=== PATIENT | female | born 1990 | race Two or more races ===

== ENCOUNTER 2018-10-12 11:30 | Inpatient (IN) | payer BC ==
[~2018-10-12] VITALS: Ht 149.9 cm; Wt 78.6 kg
[2018-10-15] MEDS ORDERED: D5%-LACTATED RINGERS 1,000 ML IV SCH (05:05)
[2018-10-15] MEDS ORDERED: OXYTOCIN 30U/ 0.9% NaCL 500ML 500 ML IV ONE (05:05)
[2018-10-15] MEDS ORDERED: OXYTOCIN 30U/ 0.9% NaCL 500ML 500 ML IV PRN (05:05)
[2018-10-15] MEDS ORDERED: OXYTOCIN 30U/ 0.9% NaCL 500ML 500 ML ONE ×2 (05:11→19:07)
[2018-10-15] MEDS ORDERED: NEWBORN KIT ONE (05:11)
[2018-10-15 05:20] VITALS: BP 114/60
[2018-10-15] MEDS ORDERED: PREN-3 PO (05:28)
[2018-10-15] MEDS ORDERED: FENTANYL PF 100 MCG/2ML IVPush PRN (05:30)
[2018-10-15] MEDS ORDERED: ONDANSETRON 2MG/ML, 2ML IVPush PRN (05:30)
[2018-10-15] MEDS ORDERED: TERBUTALINE 1 MG/ML, 1ML IVPush PRN ×2 (05:30)
[2018-10-15] MEDS ORDERED: FENTANYL PF 100 MCG/2ML IV PRN (05:30)
[2018-10-15] MEDS ORDERED: CALCIUM CARBONATE 500 MG TAB.CHEW PO PRN (05:30)
[2018-10-15] MEDS ORDERED: SODIUM CITRATE/CITRIC ACID 30 ML UDC PO PRN (05:30)
[2018-10-15] MEDS ORDERED: ALUMINUM/MAG/SIMETHICONE 30 ML UDC PO PRN (05:30)
[2018-10-15] MEDS ORDERED: TERBUTALINE 1 MG/ML, 1ML SQ PRN (05:30)
[2018-10-15] MEDS ORDERED: METOCLOPRAMIDE 5 MG/ML, 2ML IVPush PRN (05:30)
[2018-10-15] MEDS ORDERED: PLEASE ENTER ALLERGIES MC SCH (05:30)
[2018-10-15] MEDS: LACTATED RINGERS 1,000 ML IV SCH ×5 (05:36→21:43)
[2018-10-15 05:50] LABS: BASOPHILS # (AUTO) 0.06 x10^3/uL (0-0.1); BASOPHILS % (AUTO) 1 % (0-1); EOSINOPHILS # (AUTO) 0.04 x10^3/uL (0-0.4); EOSINOPHILS % (AUTO) 0 % (1-7); LYMPHOCYTES # (AUTO) 2.66 x10^3/uL (1-3.4); LYMPHOCYTES % (AUTO) 24 % (22-44); MD NO; MEAN CORPUSCULAR HEMOGLOBIN 29.5 pg (27.0-34.8); MEAN CORPUSCULAR HGB CONC 34.1 g/dL (32.4-35.8); MEAN CORPUSCULAR VOLUME 86.3 fL (80-100); MEAN PLATELET VOLUME 10.3 fL (7.4-10.4); MONOCYTES # (AUTO) 0.61 x10^3/uL (0.2-0.8); MONOCYTES % (AUTO) 6 % (2-9); NEUTROPHILS # (AUTO) 7.78 x10^3/uL (1.8-6.8); NEUTROPHILS % (AUTO) 70 % (42-75); PLATELET COUNT 197 x10^3/uL (130-400); RED BLOOD COUNT 4.11 x10^6/uL (3.82-5.3); RED CELL DISTRIBUTION WIDTH 18.8 % (9.6-15.2)
[2018-10-15] MEDS ORDERED: FENTANYL/BUPIV./NS/PF 250 ML EPIDCONT SCH ×2 (06:36→13:43)
[2018-10-15] MEDS ORDERED: TERBUTALINE 1 MG/ML, 1ML ONE (08:41)
[2018-10-15] MEDS ORDERED: BUPIVACAINE 0.25% ONE ×2 (10:05→13:46)
[2018-10-15] MEDS ORDERED: FENTANYL PF 100 MCG/2ML ONE (12:04)
[2018-10-15] MEDS ORDERED: NALOXONE 0.4 MG/ML, 1ML IVPush PRN (14:00)
[2018-10-15] MEDS ORDERED: EPHEDRINE 50 MG/ML, 1ML IVPush PRN (14:00)
[2018-10-15] MEDS ORDERED: LACTATED RINGERS 1,000 ML IVBOLUS PRN (14:00)
[2018-10-15] MEDS ORDERED: ONDANSETRON 2MG/ML, 2ML ONE (17:00)
[2018-10-15] MEDS ORDERED: ONDANSETRON 2MG/ML, 2ML IV PRN (18:00)
[2018-10-15] MEDS ORDERED: OXYcodone IR 5MG TABLET PO PRN (18:00)
[2018-10-15] MEDS ORDERED: MISOPROSTOL 200 MCG TABLET PR PRN (18:00)
[2018-10-15] MEDS ORDERED: ACETAMINOPHEN 325 MG TABLET PO PRN (18:00)
[2018-10-15] MEDS ORDERED: OXYcodone/APAP 5/325MG TABLET ONE (19:07)
[2018-10-15] MEDS ORDERED: IBUPROFEN 600 MG TABLET ONE (19:07)
[2018-10-15] MEDS: IBUPROFEN 600 MG TABLET PO PRN (19:10)
[2018-10-15] MEDS: OXYcodone/APAP 5/325MG TABLET PO PRN (19:10)
[2018-10-15] MEDS: OXYTOCIN 30U/ 0.9% NaCL 500ML 500 ML IV SCH (19:11)
[2018-10-15 20:05] VITALS: BP 108/62
[2018-10-15] MEDS ORDERED: DIPHENHYDRAMINE 12.5MG/5ML, 10ML UDC PO PRN (22:00)
[2018-10-15] MEDS: DIPHENHYDRAMINE 25 MG CAPSULE PO PRN (22:06)
[2018-10-15] MEDS ORDERED: DIPH,PERTUSS(ACELL),TET VAC/PF NC IM-VACC ONE (23:19)
[2018-10-15] MEDS ORDERED: MEASLES,MUMPS&RUBELLA VACC/PF 0.5 ML SQ-VACC ONE (23:19)
[2018-10-16] VITALS: BP 115/62
[2018-10-16] MEDS: OXYcodone/APAP 5/325MG TABLET PO PRN ×4 (00:03→20:38)
[2018-10-16] MEDS ORDERED: MEASLES,MUMPS&RUBELLA VACC/PF 0.5 ML SQ-VACC ONE (00:30)
[2018-10-16] MEDS ORDERED: DIPH,PERTUSS(ACELL),TET VAC/PF NC IM-VACC ONE (00:30)
[2018-10-16 01:57] LABS: BASOPHILS # (AUTO) 0.15 x10^3/uL (0-0.1); BASOPHILS % (AUTO) 1 % (0-1); EOSINOPHILS # (AUTO) 0.01 x10^3/uL (0-0.4); EOSINOPHILS % (AUTO) 0 % (1-7); LYMPHOCYTES # (AUTO) 2.37 x10^3/uL (1-3.4); LYMPHOCYTES % (AUTO) 18 % (22-44); MD NO; MEAN CORPUSCULAR HGB CONC 33.3 g/dL (32.4-35.8); MEAN CORPUSCULAR VOLUME 87.1 fL (80-100); MEAN PLATELET VOLUME 10.2 fL (7.4-10.4); MONOCYTES # (AUTO) 0.84 x10^3/uL (0.2-0.8); MONOCYTES % (AUTO) 6 % (2-9); NEUTROPHILS # (AUTO) 9.89 x10^3/uL (1.8-6.8); NEUTROPHILS % (AUTO) 75 % (42-75); PLATELET COUNT 173 x10^3/uL (130-400); RED BLOOD COUNT 3.51 x10^6/uL (3.82-5.3); RED CELL DISTRIBUTION WIDTH 18.5 % (9.6-15.2)
[2018-10-16] MEDS: IBUPROFEN 600 MG TABLET PO PRN ×3 (02:16→20:38)
[2018-10-16] MEDS: OXYTOCIN 30U/ 0.9% NaCL 500ML 500 ML IV SCH (03:49)
[2018-10-16 04:35] VITALS: BP 107/70
[2018-10-16] MEDS: DIPHENHYDRAMINE 25 MG CAPSULE PO PRN (04:49)
[2018-10-16] MEDS: LACTATED RINGERS 1,000 ML IV SCH ×2 (05:43→13:43)
[2018-10-16] MEDS: DOCUSATE 100 MG CAPSULE PO PRN (08:53)
[2018-10-16] MEDS: PRENATAL VIT/IRON/FA 1 EACH TABLET PO SCH (08:53)
[2018-10-16 09:10] VITALS: BP 103/62
[2018-10-16 11:50] VITALS: BP 101/62
[2018-10-16] MEDS ORDERED: IBUP-1222 PO (17:19)
[2018-10-16 20:30] VITALS: BP 111/72
[2018-10-17] MEDS: OXYcodone/APAP 5/325MG TABLET PO PRN ×2 (02:56→07:48)
[2018-10-17] MEDS: IBUPROFEN 600 MG TABLET PO PRN (02:56)
[2018-10-17 07:25] VITALS: BP 103/65
[2018-10-17] MEDS: DOCUSATE 100 MG CAPSULE PO PRN (07:48)
[2018-10-17] MEDS: PRENATAL VIT/IRON/FA 1 EACH TABLET PO SCH (07:48)
== END 2018-10-17 09:15 | disposition home or self-care (01) | DRG 807 ==
LOC: LDIP 10-15 05:03 → 2NW 10-15 19:50
PROVIDERS: ADMIT Obstetrics & Gynecology; ATTEND Obstetrics & Gynecology
PROC: 10E0XZZ Delivery of Products of Conception, External Approach (ICD-10-PCS; principal; 2018-10-15)
PROC: 0HQ9XZZ Repair Perineum Skin, External Approach (ICD-10-PCS; 2018-10-15)
PROC: 3E0R3BZ Introduction of Anesthetic Agent into Spinal Canal, Percutaneous Approach (ICD-10-PCS; 2018-10-15)
PROC: 00HU33Z Insertion of Infusion Device into Spinal Canal, Percutaneous Approach (ICD-10-PCS; 2018-10-15)
DX: O32.3XX0 Maternal care for face, brow and chin presentation, not applicable or unspecified (principal); Z37.0 Single live birth; O70.0 First degree perineal laceration during delivery; O40.3XX0 Polyhydramnios, third trimester, not applicable or unspecified; Z3A.40 40 weeks gestation of pregnancy
CPT/HCPCS: 36415; 76815; 85025; 86850; 86900; 90656; 90715; G0378; J2405; J3010; J2590; J7120; Q0163